=== PATIENT | male | born 1960 | race Caucasian/White ===

== ENCOUNTER 2020-12-08 20:58 | Emergency (ER) | payer OTHER ==
[2020-12-08 21:06] VITALS: BP 136/79; PULSE 85; TEMP 97; BMI 25.2
[2020-12-08 22:24] LABS: BASO % 0.4 % (0-2.0); EOS % 0.1 % (0-4.5); HEMATOCRIT 42.8 % (35.4-49); HEMOGLOBIN 14.6 GM/dL (11.7-16.9); LYMPH % 4.7 % (8-40); MCH 33.9 pg (25.7-33.7); MCHC 34.1 g/dl (32.0-35.9); MEAN CELL VOLUME 99.6 fl (80-96); MEAN PLT VOLUME 9.2 fl (7.5-11.1); MONO % 6.4 % (3.8-10.2); NEUT % 88.4 % (42.8-82.8); PLATELET COUNT 145 K/MM3 (134-434); RBC 4.29 M/mm3 (4.00-5.60); RDW 13.1 % (11.9-15.9); WHITE BLOOD COUNT 11.6 K/mm3 (4.0-10.0)
[2020-12-08 22:26] LABS: EPI CELLS 4 /uL (0-25.1); HYALINE CASTS 1 /uL (0-3.1); URINE APPEARANCE CLEAR; URINE BACTERIA 8 /uL (0-1359); URINE BILIRUBIN NEGATIVE (NEGATIVE); URINE COLOR YELLOW; URINE GLUCOSE (UA) NEGATIVE (NEGATIVE); URINE KETONE 2+ (NEGATIVE); URINE LEUK ESTERASE NEGATIVE (NEGATIVE); URINE NITRITE NEGATIVE (NEGATIVE); URINE PROTEIN TRACE (NEGATIVE); URINE RBC 8 /uL (0-23.9); URINE UROBILINOGEN 0.2 mg/dL (0.2-1.0); URINE WBC 25 /uL (0-25.8)
[2020-12-08 22:45] LABS: BLOOD UREA NITROGEN 18.8 mg/dL (7-18); CALCIUM 9.3 mg/dL (8.5-10.1)
[2020-12-08 22:46] LABS: ALBUMIN 3.8 g/dl (3.4-5.0)
[2020-12-08 22:48] LABS: CREATININE 1.4 mg/dL (0.55-1.3)
[2020-12-08 22:50] LABS: BILIRUBIN,TOTAL 2.1 mg/dL (0.2-1)
[2020-12-08] MEDS ORDERED: LACTATED RINGERS SOLUTION 1000 ML INFUS.BAG IV ONE (22:54)
[2020-12-08] MEDS ORDERED: ACETAMINOPHEN 1000 MG/100 ML VIAL (NON FORMULARY) IVPB ONE (22:54)
[2020-12-08] MEDS ORDERED: ACETAMINOPHEN INJECTION 100 ML IVPB ONE (23:00)
== END 2020-12-09 00:08 | disposition home or self-care (01) ==
LOC: JER 20:58
PROC: 3E0333Z Introduction of Anti-inflammatory into Peripheral Vein, Percutaneous Approach (ICD-10-PCS; principal; 2020-12-08)
DX: N20.0 Calculus of kidney (principal); N13.30 Unspecified hydronephrosis; N39.0 Urinary tract infection, site not specified
CPT/HCPCS: 36415; 74176-TC; 80053; 81003; 85025; 87086; 99284-25; J0131

== ENCOUNTER 2020-12-09 10:04 | Emergency (ER) | payer OTHER ==
[2020-12-09 10:18] VITALS: TEMP 98.5; BMI 24.4
[2020-12-09] MEDS ORDERED: KETOROLAC TROMETHAMINE 30 MG/1 ML VIAL IVPUSH ONE ×2 (10:46→13:22)
[2020-12-09] MEDS ORDERED: SODIUM CHLORIDE 0.9% 500 ML INFUS.BAG IV ONE (10:46)
[2020-12-09] MEDS ORDERED: KETOROLAC TROMETHAMINE 30 MG/1 ML VIAL ONE ×2 (10:49→13:29)
[2020-12-09 11:57] LABS: BASO % 0.4 % (0-2.0); EOS % 0.4 % (0-4.5); HEMATOCRIT 40.7 % (35.4-49); HEMOGLOBIN 14.1 GM/dL (11.7-16.9); LYMPH % 12.3 % (8-40); MCH 34.4 pg (25.7-33.7); MCHC 34.6 g/dl (32.0-35.9); MEAN CELL VOLUME 99.4 fl (80-96); MEAN PLT VOLUME 9.9 fl (7.5-11.1); MONO % 9.8 % (3.8-10.2); NEUT % 77.1 % (42.8-82.8); PLATELET COUNT 144 K/MM3 (134-434); RBC 4.09 M/mm3 (4.00-5.60); RDW 12.8 % (11.9-15.9); WHITE BLOOD COUNT 8.9 K/mm3 (4.0-10.0)
[2020-12-09 12:08] LABS: ALBUMIN 3.3 g/dl (3.4-5.0); CALCIUM 8.6 mg/dL (8.5-10.1)
[2020-12-09 12:09] LABS: BLOOD UREA NITROGEN 18.9 mg/dL (7-18)
[2020-12-09 12:11] LABS: CREATININE 1.3 mg/dL (0.55-1.3)
[2020-12-09 12:13] LABS: BILIRUBIN,TOTAL 2.6 mg/dL (0.2-1); TOT PROT 6.7 g/dl (6.4-8.2)
[2020-12-09 13:13] LABS: ALBUMIN 3.2 g/dl (3.4-5.0); CALCIUM 8.6 mg/dL (8.5-10.1)
[2020-12-09 13:14] LABS: BLOOD UREA NITROGEN 17.5 mg/dL (7-18)
[2020-12-09 13:17] LABS: CREATININE 1.2 mg/dL (0.55-1.3)
[2020-12-09 13:18] LABS: TOT PROT 6.2 g/dl (6.4-8.2)
[2020-12-09 13:42] VITALS: BP 128/80; PULSE 74
== END 2020-12-09 13:43 | disposition home or self-care (01) ==
LOC: JER 10:04
PROC: 3E0333Z Introduction of Anti-inflammatory into Peripheral Vein, Percutaneous Approach (ICD-10-PCS; principal; 2020-12-09)
DX: N23 Unspecified renal colic (principal)
CPT/HCPCS: 36415; 80053; 85025; 87491; 87591; 99285-25